=== PATIENT | female | born 1940 | race Caucasian/White ===

== ENCOUNTER 2018-05-06 16:08 | Emergency (ER) | payer OTHER ==
[~2018-05-06] VITALS: Ht 142.2 cm; Wt 43.1 kg
[2018-05-06] MEDS ORDERED: METOPROLOL SUCC25 MG (16:32)
[2018-05-06] MEDS ORDERED: LOSARTAN POTASS25 MG (16:32)
[2018-05-06] MEDS ORDERED: ARICEPT5 MG (16:33)
[2018-05-06] MEDS ORDERED: SYNTHROID112 MCG (16:33)
== END 2018-05-06 22:00 | disposition home or self-care (01) ==
LOC: ER 16:08
DX: L03.115 Cellulitis of right lower limb (principal)

== ENCOUNTER 2023-02-16 15:14 | Emergency (ER) | payer OTHER ==
[~2023-02-16] VITALS: Ht 160 cm; Wt 49.9 kg
[~2023-02-16 15:14] MED LIST: ARICEPT5 MG; LOSARTAN POTASS25 MG; METOPROLOL SUCC25 MG; SYNTHROID112 MCG
[2023-02-16] MEDS ORDERED: KEPPRA750 MG PO (15:20)
== END 2023-02-17 03:58 | disposition home or self-care (01) ==
LOC: ER 15:14
DX: S72.22XA Displaced subtrochanteric fracture of left femur, initial encounter for closed fracture (principal); L03.115 Cellulitis of right lower limb; G30.8 Other Alzheimer's disease; F02.C0 Dementia in other diseases classified elsewhere, severe, without behavioral disturbance, psychotic disturbance, mood disturbance, and anxiety; M19.90 Unspecified osteoarthritis, unspecified site; E03.9 Hypothyroidism, unspecified; I10 Essential (primary) hypertension; G40.802 Other epilepsy, not intractable, without status epilepticus; M24.559 Contracture, unspecified hip; M24.569 Contracture, unspecified knee; Z20.822 Contact with and (suspected) exposure to COVID-19